=== PATIENT | female | born 1995 | race Caucasian/White ===

== ENCOUNTER 2018-09-27 11:57 | Emergency (ER) | payer OTHER ==
--- NOTE | 2018-09-27 12:40 | EDPHY ---
HPI/HX/ROS/PE/MDM Narrative: CHIEF COMPLAINT: Chest tightness, abdominal pain HISTORY OF PRESENT ILLNESS: This patient is a healthy 23 year old female who presents reporting lower chest and upper abdominal discomfort with started last evening. Patient reports pain eventually subsided and she went to sleep. No palpiations, SOB, vomiting, diaphoresis associated with the pain. Went to sleep and felt well this am. Discomfort recurred mid morning and feel like tightness from upper abd to base of throat. No history of GERD or reflux. No vomiting or fevers. No radiation of pain. REVIEW OF SYSTEMS: A comprehensive 10 system review of systems is otherwise negative aside from elements mentioned in the history of present illness and medical decision making. PAST MEDICAL HISTORY: hx of ovarian cancer with oophorectomy. On OCP's SOCIAL HISTORY: Visiting [place] from [place]. VITAL SIGNS: Reviewed by me GENERAL: Well-developed, well-nourished, resting comfortably in no respiratory distress. HEENT: Atraumatic. Eyes: No icterus, no injection. Mouth: moist mucous membranes. No erythema or lesions. Neck: supple with no adenopathy. LUNGS: Clear to auscultation bilaterally, no wheezes, rhonchi or rales. No crepitus or chest wall tenderness. No rash. CARDIAC: Regular rate and rhythm, no rubs, murmurs or gallops. ABDOMEN: Soft, mild tenderness in upper abdomen. No RUQ tendernss. Nondistended, bowel sounds normal. BACK: No CVA tenderness. EXTREMITIES: No trauma. No edema. Range of motion is normal throughout. NEURO: Alert and oriented, grossly nonfocal. SKIN: Warm and dry, no rash. PSYCHIATRIC: Normal mentation, no agitation. Portions of this note were transcribed by a medical imaging technician. I personally performed a history, physical exam, medical decision making, and confirmed accuracy of information the transcribed note. ED Course: EKG nonischemic; see tracemaster. NSR. Troponin neg D dimer neg. CXR normal. HEART score 0 Feels much better after GI cocktail. Suspect GI source. See discharge instruction. Discussed reasons to return and recommended omeprazole. MDM: After history and physical examination, the differential for chest pain was considered, including but not limited to, myocardial ischemia, acute coronary syndrome, pulmonary embolus, chest wall pain, pleural inflammation and pulmonary infectious causes. - Data Points Imaging Results: Impression: Blunting of the costophrenic sulcus posteriorly which may represent scarring or tiny effusion. Dictated By: Dena Rodriguez MD Imaging: I viewed and interpreted images myself Laboratory Results: Laboratory Results 09/27/18 12:12 09/27/18 12:12 Medications Given: Discontinued Medications Al Hydroxide/Mg Hydroxide (Maalox Susp) 30 ml PO ONCE ONE Stop: 09/27/18 12:48 Last Admin: 09/27/18 12:53 Dose: 30 ml Hyoscyamine Sulfate (Levsin, Hyomax-Sl) 0.25 mg PO ONCE ONE Stop: 09/27/18 12:48 Last Admin: 09/27/18 12:53 Dose: 0.25 mg Sodium Chloride (Ns) 1,000 mls @ 0 mls/hr IV EDNOW ONE; Wide Open PRN Reason: Protocol Stop: 09/27/18 12:48 Last Admin: 09/27/18 12:53 Dose: 1,000 mls Lidocaine (Lidocaine 2% Viscous) 15 ml PO ONCE ONE Stop: 09/27/18 12:48 Last Admin: 09/27/18 12:53 Dose: 15 ml Point of Care Test Results: Chemistry 09/27/18 12:18 POC Troponin I 0.00 ng/mL ng/mL (0.00-0.08) General Time Seen by Provider: 09/27/18 12:22 Initial Vital Signs: Initial Vital Signs Temperature (C) 36.5 C 09/27/18 12:00 Heart Rate 78 09/27/18 12:00 Respiratory Rate 18 09/27/18 12:00 Blood Pressure 102/81 H 09/27/18 12:00 O2 Sat (%) 98 09/27/18 12:00 O2 Delivery Mode Room Air Allergies/Adverse Reactions: No Known Allergies Allergy (Unverified 09/27/18 11:59) Home Medications: Medication Instructions Recorded Bcp's 09/27/18 Cefdinir 09/27/18 Wellbutrin Sr 09/27/18 Departure - Departure Disposition: Home, Routine, Self-Care Clinical Impression: Chest tightness, Probable reflux Condition: Good Instructions: Chest Pain (ED), Esophageal Spasm (ED) Additional Instructions: Consider taking Maalox or Mylanta (liquid form) if you continue to have discomfort after swallowing your pills. I recommend you begin a 2 week course of omeprazole. This is available over-the -counter. Please drink plenty of fluid while you are here in [place]. Return to the emergency department or seek care urgently if you are having increasing chest pain, vomiting, lightheadedness, dizziness, palpitations, severe shortness of breath, fevers, chills, or other concerns. Follow up with her primary care physician when you return to home. Referrals: NONE *PRIMARY CARE P,. [Primary Care Provider] - As per Instructions
[2018-09-27] MEDS ORDERED: NS 1,000 ML IV ONE (12:47)
[2018-09-27] MEDS ORDERED: LIDOCAINE 2% VISCOUS 15 ML UDCUP PO ONE (12:47)
[2018-09-27] MEDS ORDERED: MAG HYDROX/AL HYDROX/SIMETH 30 ML UDCUP PO ONE (12:47)
[2018-09-27] MEDS ORDERED: HYOSCYAMINE SULFATE 0.125 MG TAB PO ONE (12:47)
[2018-09-27 13:05] LABS: PLATELET COUNT 354 10^3/uL (150-400)
[2018-09-27 14:10] VITALS: BP 105/82
--- NOTE | 2018-09-27 22:13 | CPEKG ---
Test Reason : OPEN Blood Pressure : / mmHG Vent. Rate : 072 BPM Atrial Rate : 075 BPM P-R Int : 155 ms QRS Dur : 086 ms QT Int : 388 ms P-R-T Axes : 064 057 043 degrees QTc Int : 425 ms Sinus rhythm Probable left atrial enlargement Confirmed by Rosa Pinto ([id number]) on 09/27/2018 10:12:53 PM Referred By: Confirmed By:Rosa Pinto
== END 2018-09-27 14:19 | disposition home or self-care (01) ==
DX: R07.9 Chest pain, unspecified (principal); K22.4 Dyskinesia of esophagus; E86.9 Volume depletion, unspecified; Z85.43 Personal history of malignant neoplasm of ovary
CPT/HCPCS: 84484-ER